=== PATIENT | male | born 1975 | race African-American/Black ===

== ENCOUNTER 2018-01-22 14:28 | Emergency (ER) | payer SELFPAY ==
[~2018-01-22] VITALS: Ht 177.8 cm; Wt 70.0 kg
[2018-01-22 14:44] VITALS: BP 119/80
== END 2018-01-22 18:20 | disposition left against medical advice (07) ==
LOC: ER 14:28
DX: M79.661 Pain in right lower leg (principal)
CPT/HCPCS: 93005; 99283